=== PATIENT | male | born 1975 | race African-American/Black ===

== ENCOUNTER 2020-09-25 08:06 | Inpatient (IN) | payer BC ==
[~2020-09-25] VITALS: Ht 180.3 cm; Wt 158.3 kg
[2020-09-25] MEDS ORDERED: LACTATED RINGERS 1,000 ML IV STA (08:34)
[2020-09-25] MEDS ORDERED: DEXAMETHASONE 4MG/ML 1ML VIAL IV ONE ×2 (08:45→11:00)
[2020-09-25 08:56] LABS: BASOPHILS % 0.4 % (0.0-2.0); EOSINOPHILS % 0.1 % (0.0-5.0); HEMATOCRIT. 51.4 % (42.0-52.0); HEMOGLOBIN. 16.6 g/dL (14.0-18.0); LYMPHOCYTES % 7.4 % (20.0-50.0); MEAN CORPUSCULAR HEMOGLOBIN 29.1 pg (28.0-32.0); MEAN CORPUSCULAR VOLUME 90.2 fL (80.0-94.0); MONOCYTES % 6.4 % (2.0-8.0); NEUTROPHILS % 85.7 % (40.0-76.0); PLATELET 387 x1000/uL (130-400); RED CELL DISTRIBUTION WIDTH 13.7 % (11.6-14.6)
[2020-09-25 09:12] LABS: BETA HYDROXYBUTYRATE 1.4 mMol/L (0.0-0.3)
[2020-09-25] MEDS ORDERED: LACTATED RINGERS 1,000 ML IV ONE (11:00)
[2020-09-25] MEDS ORDERED: INSULIN REGULAR (DRIP) 100 UNITS in SODIUM CHLORIDE 0.9% 100 ML IV ONE (11:00)
[2020-09-25] MEDS ORDERED: ONDANSETRON HCL 4MG/2ML INJ IV PRN (11:15)
[2020-09-25] MEDS ORDERED: MORPHINE SULFATE 2 MG/ML CPJ (NOT FOR IM USE) IV PRN (11:15)
[2020-09-25] MEDS ORDERED: ACETAMINOPHEN 325MG TABLET PO PRN (11:15)
[2020-09-25] MEDS ORDERED: INSULIN REGULAR (DRIP) 100 UNITS in SODIUM CHLORIDE 0.9% 99 ML IV PRN (11:15)
[2020-09-25] MEDS ORDERED: DIPHENHYDRAMINE 50MG/ML VIAL IV PRN (11:15)
[2020-09-25] MEDS ORDERED: LORAZEPAM 2MG/ML CPJ IV PRN (11:15)
[2020-09-25] MEDS ORDERED: BLOOD SUGAR DIAGNOSTIC STRIP TEST SCH (11:15)
[2020-09-25] MEDS ORDERED: DEXTROSE 50% WATER 50ML SYRINGE IV PRN (11:15)
[2020-09-25] MEDS ORDERED: IPRATROPIUM/ALBUTEROL 0.5-3(2.5)MG/3ML NEB NEB PRN (11:15)
[2020-09-25] MEDS ORDERED: ACETAMINOPHEN 650MG SUPP PR PRN (11:15)
[2020-09-25] MEDS: FAMOTIDINE 20MG/2ML VIAL IV SCH (11:41)
[2020-09-25] MEDS: CEFTRIAXONE 1 G PREMIX 50 ML IV SCH (11:41)
[2020-09-25] MEDS: SODIUM CHLORIDE 0.9% 1,000 ML IV SCH ×2 (11:47→19:15)
[2020-09-25 12:05] LABS: PROTHROMBIN TIME 10.8 sec (9.6-11.0)
[2020-09-25] MEDS: BLOOD SUGAR DIAGNOSTIC STRIP TEST SCH ×10 (12:18→23:15)
[2020-09-25] MEDS: AZITHROMYCIN 500 MG in DEXT 5% WATER 250 ML IV SCH (12:20)
[2020-09-25] MEDS ORDERED: HYDRALAZINE 20MG/ML VIAL IV PRN (13:45)
[2020-09-25 13:49] LABS: BG BASE EXCESS -7.5 mmol/L (-2.0-2.0); BG CARBOXYHEMOGLOBIN 0.2 % (0.5-1.5); BG DEOXYHEMOGLOBIN 6.6 % (0.0-5.0); BG HCO3 ACT 15.3 mmol/L (22.0-26.0); BG METHEMOGLOBIN 0.3 % (0.0-1.5); BG OXYGEN SATURATION 93.4 % (92.0-98.5); BG OXYHEMOGLOBIN 92.9 % (94.0-97.0); BG PCO2 25.8 mmHg (35.0-45.0); BG PO2 73.9 mmHg (75.0-100.0); BG SAMPLE SITE RIGHT RADIAL; BG TOTAL HEMOGLOBIN 17.3 g/dL (12.0-18.0); BG VENT MODE ROOM AIR
[2020-09-25] MEDS ORDERED: INSULIN REGULAR (DRIP) 100 UNITS in SODIUM CHLORIDE 0.9% 100 ML IV SCH (16:45)
[2020-09-25 16:49] LABS: CLARITY URINE CLOUDY (CLEAR); COLOR URINE YELLOW (YELLOW); KETONES URINE NEGATIVE (NEGATIVE); LEUKOCYTE ESTERASE URINE NEGATIVE (NEGATIVE); NITRITE URINE NEGATIVE (NEGATIVE); OCCULT BLOOD URINE 2+ (NEGATIVE); PH URINE 5.5 (4.5-8.0); PROTEIN URINE 4+ (NEGATIVE); UROBILINOGEN URINE 0.2 E.U./dL (0.2-1.0)
[2020-09-25 17:14] LABS: *AMPHETAMINES SCREEN URINE NEGATIVE (NEGATIVE); *BARBITURATES SCREEN URINE NEGATIVE (NEGATIVE); *BENZODIAZEPINES SCREEN URINE NEGATIVE (NEGATIVE); *COCAINE SCREEN URINE NEGATIVE (NEGATIVE)
[2020-09-25 17:15] LABS: CANNABINOID URINE SCREEN NEGATIVE (NEGATIVE); METHADONE URINE SCREEN NEGATIVE (NEGATIVE); OPIATES URINE SCREEN NEGATIVE (NEGATIVE); PHENCYCLIDINE URINE SCREEN NEGATIVE (NEGATIVE)
[2020-09-25 18:15] LABS: CREATINE KINASE 381 IU/L (39-308)
[2020-09-25 18:16] LABS: CREATINE KINASE MB FRACTION < 1.0 ng/mL (0.5-3.6)
[2020-09-25 20:00] LABS: C REACTIVE PROTEIN QUANT 6.5 mg/L (0.0-3.0)
[2020-09-25 20:20] LABS: D-DIMER 4.35 mg/L FEU (<0.50); PROTHROMBIN TIME 10.9 sec (9.6-11.0)
[2020-09-25] MEDS: ENOXAPARIN 40MG/0.4ML SYR SUBCUT SCH (20:55)
[2020-09-25 23:38] LABS: PHOSPHORUS 4.7 mg/dL (2.5-4.9)
[2020-09-25 23:43] LABS: CREATINE KINASE MB FRACTION 1.1 ng/mL (0.5-3.6)
[2020-09-26] MEDS: BLOOD SUGAR DIAGNOSTIC STRIP TEST SCH ×16 (00:36→23:47)
[2020-09-26] MEDS: SODIUM CHLORIDE 0.9% 1,000 ML IV SCH (03:15)
[2020-09-26 05:16] LABS: BASOPHILS % 0.5 % (0.0-2.0); HEMATOCRIT. 52.1 % (42.0-52.0); HEMOGLOBIN. 17.6 g/dL (14.0-18.0); MEAN CORPUSCULAR HEMOGLOBIN 29.6 pg (28.0-32.0); MEAN CORPUSCULAR VOLUME 87.7 fL (80.0-94.0); MEAN PLATELET VOLUME 10.3 fl (7.4-10.4); MONOCYTES % 5.6 % (2.0-8.0); NEUTROPHILS % 85.9 % (40.0-76.0); PLATELET 406 x1000/uL (130-400); RED BLOOD CELL COUNT 5.94 mill/uL (4.7-6.1); RED CELL DISTRIBUTION WIDTH 13.6 % (11.6-14.6)
[2020-09-26 05:17] LABS: CHLORIDE 111 mEq/L (98-107)
[2020-09-26 05:27] LABS: LDL CHOLESTEROL 137 mg/dL (5-100)
[2020-09-26 05:28] LABS: HDL CHOLESTEROL 26 mg/dL (40-59); T4 FREE 0.59 ng/dL (0.76-1.46)
[2020-09-26] MEDS ORDERED: LACTATED RINGERS 1,000 ML IV SCH (08:34)
[2020-09-26] MEDS ORDERED: NALOXONE HCL 0.4MG/ML VIAL IV PRN (09:00)
[2020-09-26] MEDS: FAMOTIDINE 20MG/2ML VIAL IV SCH (10:30)
[2020-09-26] MEDS: DEXT 5%/0.45% NACL 1000ML 1,000 ML IV SCH ×2 (11:21→23:56)
[2020-09-26] MEDS: CEFTRIAXONE 1 G PREMIX 50 ML IV SCH (11:43)
[2020-09-26] MEDS: AZITHROMYCIN 500 MG in DEXT 5% WATER 250 ML IV SCH (12:10)
[2020-09-26] MEDS ORDERED: POTASSIUM CHLORIDE INJ 40 MEQ in DEXT 5% WATER 250 ML IV NR (16:30)
[2020-09-26] MEDS: ENOXAPARIN 40MG/0.4ML SYR SUBCUT SCH (23:56)
[2020-09-27] MEDS: BLOOD SUGAR DIAGNOSTIC STRIP TEST SCH ×16 (00:59→19:55)
[2020-09-27 05:18] LABS: BASOPHILS % 0.3 % (0.0-2.0); EOSINOPHILS % 0.2 % (0.0-5.0); HEMATOCRIT. 49.9 % (42.0-52.0); HEMOGLOBIN. 17.1 g/dL (14.0-18.0); MEAN CORPUSCULAR HEMOGLOBIN 29.7 pg (28.0-32.0); MEAN CORPUSCULAR VOLUME 86.6 fL (80.0-94.0); MEAN PLATELET VOLUME 10.1 fl (7.4-10.4); MONOCYTES % 6.9 % (2.0-8.0); NEUTROPHILS % 82.6 % (40.0-76.0); PLATELET 474 x1000/uL (130-400); RED BLOOD CELL COUNT 5.76 mill/uL (4.7-6.1); RED CELL DISTRIBUTION WIDTH 13.8 % (11.6-14.6)
[2020-09-27] MEDS: ALBUTEROL 6.7GM HFA INHALER ORI SCH ×3 (06:36→18:21)
[2020-09-27] MEDS: SODIUM CHLORIDE 0.45% 1,000 ML IV SCH ×2 (08:14→19:55)
[2020-09-27] MEDS: FAMOTIDINE 20MG/2ML VIAL IV SCH (09:10)
[2020-09-27] MEDS ORDERED: DEXTROSE 50% WATER 50ML SYRINGE IV PRN (12:45)
[2020-09-27 13:00] VITALS: BP 130/87
[2020-09-27] MEDS ORDERED: POTASSIUM CHLORIDE 20MEQ TABLET SR PO NR (13:15)
[2020-09-27] MEDS: CEFTRIAXONE 1,000 MG in DEXTROSE 5% WATER 50 ML IV SCH (14:06)
[2020-09-27] MEDS: INSULIN LISPRO 100 UNITS/ML SUBCUT SCH ×3 (14:07→20:23)
[2020-09-27] MEDS ORDERED: INSULIN GLARGINE UD 100 UNITS/ML SYR SUBCUT NR (14:30)
[2020-09-27 16:00] VITALS: BP 146/103
[2020-09-27] MEDS: ENOXAPARIN 40MG/0.4ML SYR SUBCUT SCH (18:20)
[2020-09-27] MEDS: AZITHROMYCIN 500 MG in DEXT 5% WATER 250 ML IV SCH (18:20)
[2020-09-27 20:00] VITALS: BP 99/74
[2020-09-27] MEDS ORDERED: INSULIN GLARGINE UD 100 UNITS/ML SYR SUBCUT SCH ×2 (22:00)
[2020-09-28] VITALS: BP 99/52
[2020-09-28] MEDS: ALBUTEROL 6.7GM HFA INHALER ORI SCH ×4 (01:00→18:01)
[2020-09-28 04:00] VITALS: BP 107/75
[2020-09-28] MEDS: BLOOD SUGAR DIAGNOSTIC STRIP TEST SCH ×4 (06:06→20:11)
[2020-09-28 08:00] VITALS: BP 153/90
[2020-09-28] MEDS: FAMOTIDINE 20MG/2ML VIAL IV SCH (09:32)
[2020-09-28] MEDS: SODIUM CHLORIDE 0.45% 1,000 ML IV SCH ×2 (09:33→23:39)
[2020-09-28] MEDS: INSULIN LISPRO 100 UNITS/ML SUBCUT SCH ×4 (09:33→20:53)
[2020-09-28] MEDS: INSULIN GLARGINE UD 100 UNITS/ML SYR SUBCUT SCH ×2 (10:00→22:11)
[2020-09-28 12:00] VITALS: BP 142/84
[2020-09-28] MEDS: CEFTRIAXONE 1,000 MG in DEXTROSE 5% WATER 50 ML IV SCH (12:35)
[2020-09-28 16:00] VITALS: BP 135/88
[2020-09-28] MEDS: AZITHROMYCIN 500 MG in DEXT 5% WATER 250 ML IV SCH (17:22)
[2020-09-28] MEDS: ENOXAPARIN 40MG/0.4ML SYR SUBCUT SCH (18:01)
[2020-09-28 19:56] LABS: BASOPHILS % 0.3 % (0.0-2.0); EOSINOPHILS % 0.5 % (0.0-5.0); HEMOGLOBIN. 16.4 g/dL (14.0-18.0); LYMPHOCYTES % 13.4 % (20.0-50.0); MEAN CORPUSCULAR HEMOGLOBIN 29.1 pg (28.0-32.0); MEAN CORPUSCULAR VOLUME 90.5 fL (80.0-94.0); MEAN PLATELET VOLUME 10.4 fl (7.4-10.4); MONOCYTES % 7.1 % (2.0-8.0); NEUTROPHILS % 78.7 % (40.0-76.0); PLATELET 417 x1000/uL (130-400); RED BLOOD CELL COUNT 5.64 mill/uL (4.7-6.1); RED CELL DISTRIBUTION WIDTH 14.1 % (11.6-14.6)
[2020-09-28 20:00] VITALS: BP 114/83
[2020-09-28 20:01] LABS: CHLORIDE 99 mEq/L (98-107)
[2020-09-29] VITALS: BP 125/89
[2020-09-29] MEDS: ALBUTEROL 6.7GM HFA INHALER ORI SCH ×4 (01:21→18:03)
[2020-09-29 04:00] VITALS: BP 141/89
[2020-09-29] MEDS: BLOOD SUGAR DIAGNOSTIC STRIP TEST SCH ×4 (06:52→20:53)
[2020-09-29 07:43] LABS: HEMATOCRIT. 49.4 % (42.0-52.0); HEMOGLOBIN. 15.6 g/dL (14.0-18.0); MEAN CORPUSCULAR HEMOGLOBIN 29.3 pg (28.0-32.0); MEAN CORPUSCULAR VOLUME 92.5 fL (80.0-94.0); MEAN PLATELET VOLUME 10.2 fl (7.4-10.4); PLATELET 363 x1000/uL (130-400); RED BLOOD CELL COUNT 5.34 mill/uL (4.7-6.1); RED CELL DISTRIBUTION WIDTH 14.2 % (11.6-14.6)
[2020-09-29 08:00] VITALS: BP 130/82
[2020-09-29] MEDS: FAMOTIDINE 20MG TABLET PO SCH (08:47)
[2020-09-29] MEDS: INSULIN LISPRO 100 UNITS/ML SUBCUT SCH ×4 (08:47→21:00)
[2020-09-29] MEDS: INSULIN GLARGINE UD 100 UNITS/ML SYR SUBCUT SCH ×2 (10:45→21:01)
[2020-09-29] MEDS: PIPERACILLIN/TAZOBACTAM 2.25 G in DEXTROSE 5% WATER 50 ML IV SCH ×2 (10:45→18:03)
[2020-09-29 10:49] LABS: NUCLEATED RED BLOOD CELLS 1 /100 WBC; PLATELET ESTIMATE NORMAL
[2020-09-29 12:00] VITALS: BP 147/90
[2020-09-29] MEDS: SODIUM CHLORIDE 0.45% 1,000 ML IV SCH (13:32)
[2020-09-29 16:00] VITALS: BP 152/94
[2020-09-29] MEDS: AZITHROMYCIN 500 MG in DEXT 5% WATER 250 ML IV SCH (17:46)
[2020-09-29] MEDS: ENOXAPARIN 40MG/0.4ML SYR SUBCUT SCH (18:03)
[2020-09-29 20:00] VITALS: BP 151/93
[2020-09-29 21:21] LABS: BG BASE EXCESS -5.1 mmol/L (-2.0-2.0); BG CARBOXYHEMOGLOBIN 1.8 % (0.5-1.5); BG DEOXYHEMOGLOBIN 5.3 % (0.0-5.0); BG HCO3 ACT 18.1 mmol/L (22.0-26.0); BG METHEMOGLOBIN 0.7 % (0.0-1.5); BG OXYGEN SATURATION 94.6 % (92.0-98.5); BG OXYHEMOGLOBIN 92.2 % (94.0-97.0); BG PCO2 29.3 mmHg (35.0-45.0); BG PH 7.408 (7.350-7.450); BG PO2 71.8 mmHg (75.0-100.0); BG SAMPLE SITE RIGHT RADIAL; BG TOTAL HEMOGLOBIN 15.4 g/dL (12.0-18.0); BG VENT MODE ROOM AIR
[2020-09-30] VITALS: BP 108/75
[2020-09-30] MEDS: SODIUM CHLORIDE 0.45% 1,000 ML IV SCH ×2 (02:04→15:16)
[2020-09-30] MEDS: PIPERACILLIN/TAZOBACTAM 2.25 G in DEXTROSE 5% WATER 50 ML IV SCH ×3 (02:05→18:09)
[2020-09-30] MEDS: ALBUTEROL 6.7GM HFA INHALER ORI SCH ×5 (02:05→23:17)
[2020-09-30 06:38] VITALS: BP 124/89
[2020-09-30] MEDS: BLOOD SUGAR DIAGNOSTIC STRIP TEST SCH ×4 (07:18→21:00)
[2020-09-30] MEDS: INSULIN LISPRO 100 UNITS/ML SUBCUT SCH ×4 (07:50→23:14)
[2020-09-30 08:00] VITALS: BP 117/77
[2020-09-30] MEDS: FAMOTIDINE 20MG TABLET PO SCH (08:00)
[2020-09-30] MEDS: INSULIN GLARGINE UD 100 UNITS/ML SYR SUBCUT SCH ×2 (10:14→23:16)
[2020-09-30 12:00] VITALS: BP 138/88
[2020-09-30 16:00] VITALS: BP 115/68
[2020-09-30] MEDS: ENOXAPARIN 40MG/0.4ML SYR SUBCUT SCH (18:09)
[2020-09-30] MEDS ORDERED: FUROSEMIDE 40MG TABLET PO SCH (19:30)
[2020-09-30 20:00] VITALS: BP 152/83
[2020-09-30 20:17] LABS: HEMATOCRIT. 41.3 % (42.0-52.0); HEMOGLOBIN. 13.4 g/dL (14.0-18.0); MEAN CORPUSCULAR HEMOGLOBIN 29.4 pg (28.0-32.0); MEAN CORPUSCULAR VOLUME 90.8 fL (80.0-94.0); MEAN PLATELET VOLUME 10.3 fl (7.4-10.4); PLATELET 402 x1000/uL (130-400); RED BLOOD CELL COUNT 4.55 mill/uL (4.7-6.1)
[2020-09-30 21:30] LABS: PLATELET ESTIMATE SLIGHTLY INCREASED
[2020-09-30] MEDS ORDERED: FUROSEMIDE 40MG TABLET PO NR (23:00)
[2020-10-01] VITALS: BP 118/77
[2020-10-01] MEDS: PIPERACILLIN/TAZOBACTAM 2.25 G in DEXTROSE 5% WATER 50 ML IV SCH (03:00)
[2020-10-01 04:00] VITALS: BP 123/71
[2020-10-01] MEDS: ALBUTEROL 6.7GM HFA INHALER ORI SCH (05:41)
[2020-10-01] MEDS: BLOOD SUGAR DIAGNOSTIC STRIP TEST SCH (07:40)
[2020-10-01] MEDS: INSULIN LISPRO 100 UNITS/ML SUBCUT SCH (08:10)
[2020-10-01] MEDS: FAMOTIDINE 20MG TABLET PO SCH (09:00)
[2020-10-01] MEDS ORDERED: FUROSEMIDE 40MG TABLET PO SCH (09:00)
[2020-10-01] MEDS: SODIUM CHLORIDE 0.45% 1,000 ML IV SCH (09:29)
[2020-10-01] MEDS: INSULIN GLARGINE UD 100 UNITS/ML SYR SUBCUT SCH (09:35)
== END 2020-10-01 10:41 | disposition left against medical advice (07) | DRG 871 ==
LOC: ER 08:06 → MICUSO 10:58 → EDBEDREQ 11:10 → EDBEDREQSVC 11:10 → SUPCPDRO 13:24 → 7WST 09-27 11:52
PROVIDERS: ADMIT Internal Medicine; ATTEND Internal Medicine
DX: A41.9 Sepsis, unspecified organism (principal); E11.10 Type 2 diabetes mellitus with ketoacidosis without coma; U07.1 COVID-19; J12.82 Pneumonia due to coronavirus disease 2019; G92 Toxic encephalopathy; E87.1 Hypo-osmolality and hyponatremia; Z68.42 Body mass index [BMI] 45.0-49.9, adult; N17.9 Acute kidney failure, unspecified; N04.9 Nephrotic syndrome with unspecified morphologic changes; Z53.29 Procedure and treatment not carried out because of patient's decision for other reasons; E88.09 Other disorders of plasma-protein metabolism, not elsewhere classified; E11.21 Type 2 diabetes mellitus with diabetic nephropathy; Z20.822 Contact with and (suspected) exposure to COVID-19; E66.9 Obesity, unspecified; E87.6 Hypokalemia; R74.01 Elevation of levels of liver transaminase levels; E78.5 Hyperlipidemia, unspecified; E87.5 Hyperkalemia; I10 Essential (primary) hypertension; Z91.19 Patient's noncompliance with other medical treatment and regimen; Z79.4 Long term (current) use of insulin; Z79.1 Long term (current) use of non-steroidal anti-inflammatories (NSAID); Z79.899 Other long term (current) drug therapy
CPT/HCPCS: 36415; 36600; 71045; 76770; 80048; 80053; 80061; 80076; 80305; 81003; 82010; 82375; 82550; 82553; 82728; 82805; 82962; 83036; 83605; 83615; 83735; 83880; 84100; 84145; 84439; 84443; 84484; 85025; 85379; 86140; 93005; 94640; 97162; 99291; C1893; J0360; J0456; J0696; J1100; J1650; J1815; J2060; J2543; J3480; J3490; J7040; J7050; J7060; J7120; U0003; U0005; A4315